=== PATIENT | female | born 1970 | race Caucasian/White ===

== ENCOUNTER → 2019-11-21 | Outpatient (CLI) | payer BC ==
--- NOTE | 2019-11-21 18:02 | RAD ---
Ultrasound left lower extremity arterial color Doppler with spectral analysis FINDINGS: Left leg pain and cold feet Sonographic visualization left flexion was performed and multiple static images were obtained. In addition color Doppler was applied as well as arterial waveform spectral analysis. FINDINGS: There is normal triphasic waveform morphology throughout. IMPRESSION: Negative examination. Electronically signed by: Joseph Angel III, MD (11/21/2019 5:59 PM) [id number]
== END | disposition home or self-care (01) ==
LOC: PMG 15:49
PROVIDERS: ATTEND Registered Nurse
DX: R20.8 Other disturbances of skin sensation (principal); M79.605 Pain in left leg
CPT/HCPCS: 93923

== ENCOUNTER → 2020-06-25 | Outpatient (CLI) | payer BC ==
[2020-06-26 08:08] LABS: DHEA SO4 41.5 ug/dL (41.2-243.7); ESTRADIOL LEVEL 8.1 pg/mL (.); FSH 55.9 mIU/mL (.); LUTEINIZING HORMONE 23.4 mIU/mL (.); PROGESTERONE 0.1 ng/mL (.)
== END | disposition home or self-care (01) ==
LOC: LAB 15:13
PROVIDERS: ATTEND Obstetrics & Gynecology
DX: N95.1 Menopausal and female climacteric states (principal)
CPT/HCPCS: 36415; 82627; 82670; 83001; 83002; 84144; 84402; 84403; 84443

== ENCOUNTER → 2021-08-05 | Outpatient (CLI) | payer BC ==
--- NOTE | 2021-08-05 15:38 | RAD ---
EXAM: Neck soft tissues, 3 views. HISTORY: Dysphagia. COMPARISON: None. FINDINGS: 3 views of the neck soft tissues are obtained. The airways midline and widely patent. No fo reign body is seen. There is degenerative endplate remodeling involving the lower cervical spine. The re is no fracture or suspicious osseous finding. IMPRESSION: No acute finding. No radiodense foreign body. Electronically signed by: Emma Whitt MD (08/05/2021 3:35 PM) [id number]
== END ==
LOC: RAD 15:15
PROVIDERS: ATTEND Nurse Practitioner Family
DX: R13.10 Dysphagia, unspecified (principal)
CPT/HCPCS: 70360

== ENCOUNTER → 2021-08-14 | Outpatient (CLI) | payer BC ==
--- NOTE | 2021-08-14 13:17 | RAD ---
Supine abdomen. HISTORY: Abdominal pain Supine views were taken of the abdomen. There are multiple phleboliths in the pelvis. There is scolio sis and degenerative change in the lumbar spine. There is no bowel obstruction. There is mild arthrit is in the left hip. IMPRESSION: 1. No bowel obstruction or acute finding noted. 2. Scoliosis and degenerative change in lumbar spine. Electronically signed by: Juan Miguel Giles MD (08/14/2021 1:15 PM) [facility]
== END ==
LOC: RAD 12:32
PROVIDERS: ATTEND Nurse Practitioner Family
DX: R19.8 Other specified symptoms and signs involving the digestive system and abdomen (principal); M47.816 Spondylosis without myelopathy or radiculopathy, lumbar region; M41.86 Other forms of scoliosis, lumbar region; I87.8 Other specified disorders of veins; M16.12 Unilateral primary osteoarthritis, left hip
CPT/HCPCS: 74018

== ENCOUNTER → 2021-08-15 | Emergency (ER) | payer BC ==
[~2021-08-15] VITALS: Ht 162.6 cm; Wt 106.9 kg
[~2021-08-15] MED LIST: DICYCLOMINE 20 MG/2 ML VIAL. IM ONE; IOHEXOL 300 MG/ML 75 ML VIAL. IV ONE; ONDANSETRON ODT 4 MG TAB.RAPDIS PO ONE
[2021-08-15 13:03] VITALS: BP 119/74
--- NOTE | 2021-08-15 13:17 | PHYS DOC ---
Past History Alcohol Use: None (EDEN CARVALHO APRN) General Adult EDM: Chief Complaint: CONSTIPATION HPI: HPI: Patient is a 51-year-old female being seen in the emergency department for constipation she will use. Patient reports that she had constipation on Tuesday and she has been taking MiraLAX daily as well as used a fleets enema. She was seen at the urgent care yesterday and had a KUB and blood work performed. She states that she has been having runny and liquidy stools for the last 3 days. But she states that it still feels like she needs to have a bowel movement and she has generalized abdominal cramping prior to bowel movements and her pain is relieved from the bowel movement. Her last bowel movement was today. She states that she has been eating and drinking fine. She denies nausea or vomiting, fevers, blood in stools. (EDEN CARVALHO APRN) Review of Systems: Review of Systems: 14 body systems of the review of systems have been reviewed. See HPI for pertinent positive and negative responses, otherwise all other systems are negative, nonpertinent or noncontributory (EDEN CARVALHO APRN) Allergies: Allergies: Allergies Coded Allergies Type Severity Reaction Last Updated Verified Penicillins Allergy Unknown 08/15/21 Yes ibuprofen Allergy Unknown 08/15/21 Yes Uncoded Allergies Type Severity Reaction Last Updated Verified PINE NUTS Allergy Unknown 08/15/21 (EDEN CARVALHO APRN) Physical Exam: PE: Constitutional: Well developed, well nourished, no acute distress, non-toxic appearance. [] HENT: Normocephalic, atraumatic, bilateral external ears normal, oropharynx moist, no oral exudates, nose normal. [] Eyes: PERRL, EOMI, conjunctiva normal, no discharge. [] Neck: Normal range of motion, no stridor Cardiovascular:Heart rate regular rhythm, no murmur [] Lungs & Thorax: Bilateral breath sounds clear to auscultation [] Abdomen: Bowel sounds normal, soft, no tenderness, no masses, no pulsatile masses. [] Skin: Warm, dry, no erythema, no rash. [] Back: normal range of motion Extremities: No tenderness, no cyanosis, no clubbing, ROM intact, no edema. [] Neurologic: Alert and oriented X 3, normal motor function, normal sensory function, no focal deficits noted. [] Psychologic: Affect normal, judgement normal, mood normal. [] (EDEN CARVALHO APRN) EKG: EKG: [] (EDEN CARVALHO APRN) Radiology/Procedures: Radiology/Procedures: []PROCEDURE: CT ABD PELV W/ IV CONTRST ONLY EXAM: CT Abdomen and Pelvis with IV contrast CLINICAL HISTORY: abdominal pain, diarrhea COMPARISON: none TECHNIQUE: Helical CT of the abdomen and pelvis was performed following the administration of intravenous contrast. Axial, coronal and sagittal reformatted images were generated. PQRS compliance statement - One or more of the following individualized dose reduction techniques were utilized for this study: 1. Automated exposure control 2. Adjustment of the mA and/or kV according to patient size 3. Use of iterative reconstruction technique FINDINGS: Lower Chest: 3 mm right lower lobe lung nodule (image 14). Abdomen and Pelvis: Hepatic hypoattenuation, fatty liver. Gallbladder is normal. No biliary duct dilatation. Pancreas, spleen and adrenal glands are unremarkable. Symmetric nephrograms. No focal renal lesion. No hydronephrosis. Bladder is unremarkable. No hydronephrosis. No hydroureter. Appendix is normal. Moderate colonic stool content is seen. No small or large bowel dilatation. No bowel obstruction. Colonic diverticula are seen. No evidence for acute diverticulitis. Relatively featureless appearance of the sigmoid colon may be seen with inflammatory bowel disease. Exophytic calcified structure adjacent to the uterus may represent an exophytic uterine fibroid or right adnexal lesion. No abdominal or pelvic ascites. No abdominal or pelvic lymphadenopathy. Multifocal degenerative changes of the spine and pelvis. No aggressive osseous lesion is seen. Leftward curvature of the lumbar spine apex L2. IMPRESSION: 1. Relatively featureless appearance of the sigmoid colon is nonspecific and ma y be physiologic but also could be seen with chronic changes of inflammatory bowel disease. 2. Hepatic hypoattenuation, fatty liver. 3. Exophytic partially calcified uterine fibroid or right adnexal calcified mass. Recommend correlation with prior imaging if available otherwise can be further assessed with nonemergent ultrasound. 4. Per Fleischner Society guidelines for incidentally found solid nodules measuring less than 6 mm, no follow-up is necessary if patient is considered at low risk for lung cancer. If patient is considered to be at high risk, such as with history of smoking, then CT follow-up in about 12 months can be considered. Electronically signed by: Clive Sanchez MD (08/15/2021 2:14 PM) [facility] DICTATED AND SIGNED BY: CLIVE SANCHEZ MD DATE: 08/15/21 1407 CC: EDEN CARVALHO APRN; RIVASETELVINA M PA ~MTH0 0 (EDEN CARVALHO APRN) Heart Score: C/O Chest Pain: N/A Risk Factors: Risk Factors: DM, Current or recent (<one month) smoker, HTN, HLP, family history of CAD, obesity. Risk Scores: Score 0 - 3: 2.5% MACE over next 6 weeks - Discharge Home Score 4 - 6: 20.3% MACE over next 6 weeks - Admit for Clinical Observation Score 7 - 10: 72.7% MACE over next 6 weeks - Early Invasive Strategies (EDEN CARVALHO APRN) C/O Chest Pain: N/A (DESTIN CHING DO) Course & Med Decision Making: Course & Med Decision Making Pertinent Labs and Imaging studies reviewed. (See chart for details) [] Patient presents to the emergency department for runny stools x3 days after using MiraLAX and fleets enema. Patient states that she believes she has a stool impaction because she when she has a bowel movement she feels something from her rectum. I performed a rectal exam and patient did not have stool impaction. Patient advised to discontinue the MiraLAX and fleets enemas as that is what is likely causing her runny liquid stools. I reviewed patient's imaging from the urgent care and her KUB showed scattered stool but no obstruction. I was unable to view patients blood work on her EMR but she was able to pull up her patient portal. A CT of her abdomen was performed and it showed moderate amount of stool, no obstruction, no diverticulitis and inflammatory changes of bowel most likely due to overuse of miralax/enema. Patient educated on low fodmpa diet, increaseing fiber and imodium otc, I attempted to give patient imodium in ER but we did not have liquid available. Patient also given IM bentyl and zofran odt. I discussed with patient all findings and diagnostic testing as well as the need to follow-up with PCP for further evaluation and treatment or return to the ER if any new or worsening symptoms. Strict return precautions were also discussed at length. Patient voiced understanding and agreement with the plan. Patient is hemodynamically stable at the time of disposition. (EDEN CARVALHO APRN) Course & Med Decision Making I was the Attending physician on the above date of service of this patient. This patient was evaluated, examined, treated, and dispositioned from the emergency department by the mid-level practitioner. Although I was working at the time , no assistance was requested. Electronically signed, Destin Ching DO (DESTIN CHING DO) Merry Disclaimer: Merry Disclaimer: This electronic medical record was generated, in whole or in part, using a voice recognition dictation system. (EDEN CARVALHO APRN) Departure Departure: Impression: Primary Impression: Diarrhea Qualified Codes: R19.7 - Diarrhea, unspecified Disposition: HOME / SELF CARE / HOMELESS Condition: GOOD Referrals: ETELVINA HATHAWAY (PCP) Patient Instructions: Diarrhea Additional Instructions: You are seen in the emergency department for constipation. You state that you were having bowel movements but they are liquid. This is probably due to your MiraLAX and fleets enema. I would avoid taking any additional MiraLAX. I reviewed your chart from the urgent and you did not have a bowel obstruction. You were noted to have a scattered amount of stool in your abdomen. The abdominal pain is most likely due to your use of an enema. We performed a rectal exam and you had no impaction of stool. The CT scan of your abdomen showed no bowel obstruction and inflammatory bowel syndrome. Increase your fiber intake and you can try eating a low fodmap diet and may need to restrict lactose. You can take Imodium over the counter in liquid form. I would follow-up with your primary care provider on Tuesday regarding your ER visit. Return to the emergency department if you develop severe abdominal pain, blood in your stools, intractable nausea or vomiting, high fevers refractory to treatment. EMERGENCY DEPARTMENT GENERAL DISCHARGE INSTRUCTIONS Thank you for coming to [facility] (ED) today and trusting us with you care. We trust that you had a positivie experience in our Emergency Department. If you wish to speak to the department management, you may call the director at [phone]. YOUR FOLLOW UP INSTRUCTIONS ARE FOLLOWS: 1. Do you have a private Doctor? If you do not have a private doctor, please ask for a resource list of physicians or clinics that may be able to assist you with follow up care. 2. The Emergency Physician has interpreted your x-rays. The X-Ray specialist will also review them. If there is a change in the findings, you will be notified in 48 hours when at all possible. 3. A lab test or culture has been done, your results will be reviewed and you will be notified if you need a change in treatment. ADDITIONAL INSTRUCTIONS AND INFORMATION: 1. Your care today has been supervised by a physician who is specially trained in emergency care. Many problems require more than one evaluation for a complete diagnosis and treatment. We recommend that you schedule your follow up appointment as recommended to ensure complete treatment of you illness or injury. If you are unable to obtain follow up care and continue to have a problem, or if your condition worsens, we recommend that you return to the ED. 2. We are not able to safely determine your condition over the phone nor are we able to give sound medical advice over the phone. For these safety reasons, if you call for medical advice we will ask you to come to the ED for further evaluation. 3. If you have any questions regarding these discharge instructions please call the ED at [phone]. SAFETY INFORMATION: In the interest of safety, wellness, and injury prevention; we encourage you to wear your sealbelt, if you smoke; quite smoking, and we encourage family to use a protective helmet for bicycling and other sporting events that present an increased risk for head injury. IF YOUR SYMPTOMS WORSEN OR NEW SYMPTOMS DEVELOP, OR YOU HAVE CONCERNS ABOUT YOUR CONDITION; OR IF YOUR CONDITION WORSENS WHILE YOU ARE WAITING FOR YOUR FOLLOW UP APPOINTMENT; EITHER CONTACT YOUR PRIMARY CARE DOCTOR, THE PHYSICIAN WHOSE NAME AND NUMBER YOU WERE GIVEN, OR RETURN TO THE ED IMMEDIATELY. EDEN CARVALHO APRN Aug 15, 2021 13:17 DESTIN CHING DO Aug 16, 2021 11:21
--- NOTE | 2021-08-15 14:16 | RAD ---
EXAM: CT Abdomen and Pelvis with IV contrast CLINICAL HISTORY: abdominal pain, diarrhea COMPARISON: none TECHNIQUE: Helical CT of the abdomen and pelvis was performed following the administration of intrave nous contrast. Axial, coronal and sagittal reformatted images were generated. PQRS compliance statement - One or more of the following individualized dose reduction techniques wer e utilized for this study: 1. Automated exposure control 2. Adjustment of the mA and/or kV according to patient size 3. Use of iterative reconstruction technique FINDINGS: Lower Chest: 3 mm right lower lobe lung nodule (image 14). Abdomen and Pelvis: Hepatic hypoattenuation, fatty liver. Gallbladder is normal. No biliary duct dilatation. Pancreas, sp yudelka and adrenal glands are unremarkable. Symmetric nephrograms. No focal renal lesion. No hydronephr osis. Bladder is unremarkable. No hydronephrosis. No hydroureter. Appendix is normal. Moderate coloni c stool content is seen. No small or large bowel dilatation. No bowel obstruction. Colonic diverticul a are seen. No evidence for acute diverticulitis. Relatively featureless appearance of the sigmoid co gian may be seen with inflammatory bowel disease. Exophytic calcified structure adjacent to the uterus may represent an exophytic uterine fibroid or right adnexal lesion. No abdominal or pelvic ascites. No abdominal or pelvic lymphadenopathy. Multifocal degenerative changes of the spine and pelvis. No aggressive osseous lesion is seen. Leftwa rd curvature of the lumbar spine apex L2. IMPRESSION: 1. Relatively featureless appearance of the sigmoid colon is nonspecific and may be physiologic but also could be seen with chronic changes of inflammatory bowel disease. 2. Hepatic hypoattenuation, fatty liver. 3. Exophytic partially calcified uterine fibroid or right adnexal calcified mass. Recommend correlat ion with prior imaging if available otherwise can be further assessed with nonemergent ultrasound. 4. Per Fleischner Society guidelines for incidentally found solid nodules measuring less than 6 mm, no follow-up is necessary if patient is considered at low risk for lung cancer. If patient is conside red to be at high risk, such as with history of smoking, then CT follow-up in about 12 months can be considered. Electronically signed by: Clive Leonard MD (08/15/2021 2:14 PM) [facility]
== END | disposition home or self-care (01) ==
LOC: ER 12:46
DX: K59.00 Constipation, unspecified (principal); R19.7 Diarrhea, unspecified; Z88.0 Allergy status to penicillin; Z88.6 Allergy status to analgesic agent
CPT/HCPCS: 74177; 99285; Q9967

== ENCOUNTER → 2021-08-21 | Outpatient (CLI) | payer BC ==
[2021-08-15 13:03] VITALS: BP 119/74
[~2021-08-21] MED LIST changes: +BARIUM SULFATE 60% 355 ML SUSP PO ONE; +BARIUM SULFATE 98% 135 ML SUSP PO ONE; -DICYCLOMINE 20 MG/2 ML VIAL. IM ONE; -IOHEXOL 300 MG/ML 75 ML VIAL. IV ONE; -ONDANSETRON ODT 4 MG TAB.RAPDIS PO ONE; +SIMETHICONE/SOD BICARB/CITRIC ACID PACKET. PO ONE
--- NOTE | 2021-08-21 11:25 | RAD ---
Barium swallow study 08/21/2021 CLINICAL HISTORY: History of eosinophilic esophagitis. Impaction one month ago. Dysphagia. TECHNIQUE: A barium swallow study was performed under fluoroscopic control. The total fluoroscopic ti me for this study is 2.1 minutes. Six digital spot radiographs were obtained. FINDINGS: Comparison is made to the patient's CT scan of the abdomen dated 08/15/2021. The mucosal pattern of the hypopharynx, esophagus and GE junction is within normal limits. The swallo wing mechanism is within normal limits. No penetration or aspiration is seen. Tertiary contractions o f the esophagus are seen consistent with mild esophageal dysmotility. There is a very small sliding h iatal hernia. No gastroesophageal reflux is seen. IMPRESSION: 1. Mild esophageal dysmotility. 2. Very small sliding hiatal hernia. Electronically signed by: Elie Ricks MD (08/21/2021 11:22 AM) [id number]
== END ==
LOC: RAD 08:24
PROVIDERS: ATTEND Physician Assistant Medical
DX: K44.9 Diaphragmatic hernia without obstruction or gangrene (principal); R13.10 Dysphagia, unspecified
CPT/HCPCS: 74220

== ENCOUNTER → 2021-08-30 | Outpatient (CLI) | payer BC ==
[2021-08-15 13:03] VITALS: BP 119/74
--- NOTE | 2021-08-30 12:05 | RAD ---
Single view abdomen dated 08/30/2021. COMPARISON: 08/14/[address] dated 08/15/2021. CLINICAL INDICATION: Abdominal pain. FINDINGS: 2 supine images submitted. Nondilated gas-filled loops of bowel throughout. Calcific density in the r ight upper quadrant is new from prior study, probably related to bowel contents. There is also some i ncreased density within the appendix which is likely related to retained barium from prior esophagram . Calcification in the pelvis are consistent with phleboliths. IMPRESSION: Nonobstructive bowel gas pattern. Electronically signed by: Shabbir Zuniga MD (08/30/2021 12:03 PM) [id number]
== END ==
LOC: PMG 11:02
PROVIDERS: ATTEND Nurse Practitioner Family
DX: R10.30 Lower abdominal pain, unspecified (principal); N94.89 Other specified conditions associated with female genital organs and menstrual cycle
CPT/HCPCS: 74018